=== PATIENT | female | born 1950 | race Hispanic/Latino ===

== ENCOUNTER → 2021-05-30 | Outpatient (CLI) | payer MEDICARE | LOC: RAD 11:09 | PROVIDERS: ATTEND Family Medicine | DX: M75.41 Impingement syndrome of right shoulder (principal) ==

== ENCOUNTER 2021-07-22 11:00 | Outpatient (RCR) | payer MEDICARE | END 2021-07-27 | LOC: OT 11:00 | PROVIDERS: ATTEND Specialist | DX: M75.81 Other shoulder lesions, right shoulder (principal); S43.431A Superior glenoid labrum lesion of right shoulder, initial encounter ==